=== PATIENT | female | born 1930 | race Caucasian/White ===

== ENCOUNTER 2016-10-18 14:46 | Inpatient (IN) ==
[2016-10-18] MEDS ORDERED: TORADOL IV ONE (17:28)
[2016-10-18] MEDS: NS 1,000 ML IV SCH (18:10)
--- NOTE | 2016-10-18 18:59 | Diag Imaging Result Doc PS360 ---
KUB ABDOMEN - 10/18/2016 INDICATION: constipation TECHNIQUE: COMPARISON: 10/14/2016 FINDINGS: There has been resolution of the constipation. No bowel obstruction or free air. No abnormal calcifications. IMPRESSION: Resolution of the constipation. Very little stool in the colon. Electronically signed by Yobany Emmanuel 10/18/2016 6:57 PM
[2016-10-18 19:10] LABS: MANUAL DIFF NEEDED? NO
[2016-10-18 19:23] LABS: EOS# 0.21 X1000 (0.0-0.7); EOS% 3.1 % (0.0-10.0); HEMATOCRIT 42.9 % (37.0-47.0); HEMOGLOBIN 14.2 g/dL (12.0-16.0); IMM GRAN# 0.02 X1000 (0.0-0.04); IMM GRAN% 0.3 % (0.0-0.5); LYMPH# 1.46 X1000 (1.2-3.4); LYMPH% 21.3 % (20.5-51.1); MCH 29.2 PG (27-31); MCHC 33.1 g/dL (33-37); MCV 88.1 FL (81-99); MONO# 0.62 X1000 (0.11-0.59); MONO% 9.1 % (1.7-9.3); MPV 10.5 FL (7.4-10.4); NEUT% 65.2 % (42.2-75.2); PLT 187 X1000 (130-400); RBC 4.87 XMIL (4.2-5.4)
[2016-10-18 19:44] LABS: AGAP 0; ALBUMIN 3.7 g/dL (3.5-5.0); ALKALINE PHOSPHATASE 68 U/L (32-104); AMYLASE 37 U/L (20-200); BUN 14 mg/dL (8-22); CALCIUM 9.1 mg/dL (8.8-10.2); CHLORIDE 96 mmol/L (98-107); COSMO 273; GOT 19 U/L (10-30); GPT 13 U/L (10-36); POTASSIUM 4.1 mmol/L (3.5-5.1); SODIUM 136 mmol/L (136-145); TCO2 40 mmol/L (25-35); TOTAL BILIRUBIN 0.51 mg/dL (0.20-1.00); TOTAL PROTEIN 7.6 g/dL (6.3-8.3)
[2016-10-18 20:40] LABS: URINE MICRO REVIEW NEEDED? NO; URINE SOURCE VOIDED
[2016-10-18 20:55] LABS: BILIRUBIN URINE NEGATIVE (NEGATIVE); BLOOD URINE NEGATIVE (NEGATIVE); COLOR STRAW; GLUCOSE URINE NEGATIVE (NEGATIVE); LEUKOCYTES URINE MODERATE (NEGATIVE); NITRITE URINE NEGATIVE (NEGATIVE); PROTEIN URINE NEGATIVE (NEGATIVE); SP GRAVITY URINE 1.006; TURBIDITY URINE CLEAR (CLEAR); UR EPITHELIAL CELLS <10 /HPF (<10); URINE BACTERIA 2+ /HPF; URINE RBC <10 /HPF (<10); UROBILINOGEN URINE NORMAL (NORMAL)
--- NOTE | 2016-10-18 21:32 | HISTORY AND PHYSICAL ---
CHIEF COMPLAINT: 1. Intractable back pain. 2. Right-sided abdominal pain, nausea. 3. Constipation. HISTORY OF PRESENT ILLNESS: She is an 86-year-old white female who was seen a 3rd time for these above symptoms. She was evaluated in the emergency room on 10/14/2016. At that time, CBC and SMA- [address] scan of the abdomen and pelvis revealed mildly distended gallbladder, no calcified gallstones. No pancreatic mass. Distended right colon with fecal debris. There is 1.2 cm diverticulum in the mid descending colon. No diverticulitis. Right hip prosthesis, previous hysterectomy and x-ray of the lumbar spine, no evidence of fracture or dislocation. She was sent home on laxatives. Then she was evaluated in my office on 10/15/2016. She was sent home on Linzess. She was brought in by son this afternoon and mother was not able to eat, not able to walk. X-ray of the right hip, stable prosthesis. Basically admitted to the hospital for the evaluation of the back pain and also abdominal pain on the right side. Possible rule out gallbladder disease. Pain is localized. No radiation to the leg. No fever. No UTI symptoms. PAST MEDICAL HISTORY: Hypertension. Osteoarthritis. Osteopenia. Retinopathy of the left eye. PAST SURGICAL HISTORY: Hysterectomy. Right hip replacement. Tubal ligation. MEDICATIONS: Fosamax. Aspirin. Calcium. Diovan 320 mg daily. Metamucil. ALLERGIES: Morphine, codeine and sulfa drugs. SOCIAL HISTORY: No smoking. No alcohol. . 2 children. Lives in [place]. FAMILY HISTORY: Father in 1984 due to heart problems. Mom of peptic ulcer disease. Rupture. HEALTH MAINTENANCE: Flu vaccine 2015, mammography 12/2015, colonoscopy [address] Rocha. DEXA scan 07/2013. REVIEW OF SYSTEMS: HEENT: No headache. No vision problem. No earache. No sore throat. Neck: No goiter. No lymphadenopathy. No bruit. Cardiopulmonary: No chest pain, shortness of breath, PND, orthopnea. GI: Upper abdominal pain, nausea with food and intractable back pain localized. No rashes noted. : No history of hesitancy, frequency, dysuria. No weakness in the legs. PHYSICAL EXAMINATION: VITAL SIGNS: Stable. 5 feet 6 inches, 138 pounds. Input and output -350. HEENT: Within normal limits. NECK: Supple. No lymphadenopathy. CHEST: Bilateral air entry. HEART: Sounds are regular. BREAST EXAM: Deferred. ABDOMEN: Belly is soft. No signs of peritonitis. No rashes noted on the back. No flank tenderness. NEUROLOGIC: No obvious focal deficits. INVESTIGATIONS: CBC is normal. White cell count 6.8, hematocrit 42, platelets 187,000. SMA7 is normal. LFTs were normal. Urinalysis is pending. KUB: Resolution of constipation. ASSESSMENT AND PLAN: 1. An 86-year-old white female admitted to the hospital with abdominal pain, rule out gallbladder disease. We will schedule a HIDA scan. 2. Intractable back pain. Spondylosis. We will do the MRI of lumbar spine. 3. Reconcile home medicines. 4. IV fluids. Tylenol for pain. Linzess for constipation. Zofran for nausea. 5. Gastrointestinal prophylaxis with Protonix. 6. Deep venous thrombosis prophylaxis with Lovenox and will follow up. cc: Braydon Mathews MD MTDD
[2016-10-18] MEDS: CALTRATE 600 + D PO SCH (21:42)
[2016-10-18] MEDS: SODIUM CHLORIDE 0.9% INJ SCH (21:45)
[2016-10-18] MEDS: PROTONIX IV SCH (21:45)
[2016-10-18] MEDS: TORADOL IV SCH (23:31)
[2016-10-19] MEDS: TORADOL IV SCH ×4 (04:55→22:23)
[2016-10-19] MEDS: NS 1,000 ML IV SCH ×2 (08:14→17:52)
--- NOTE | 2016-10-19 09:35 | Diag Imaging Result Doc PS360 ---
EXAM: MRI LUMBAR SPINE W/O CONTRAST HISTORY: back pain TECHNIQUE: MRI of the lumbar spine, T1 and T2 sagittal, STIR sagittal, T1 and T2 axial COMMENT: There are no previous MRI studies. There is rotoscoliosis of the lumbar spine with convexity to the right. There is what appears to be a hemangioma on the left side of the L3 vertebral body. At L1-2 there is some hypertrophic facet disease and disc bulge without evidence of spinal or foraminal stenosis. At L2-3 there is disc bulge and osteophyte formation with central disc protrusion. The left foramen is slightly narrowed. Hypertrophic facet changes and ligamentum flavum hypertrophy is present. At the L3-4 level there is severe hypertrophic facet disease on the right as well as disc bulge producing a mild degree of right-sided foraminal stenosis. There is narrowing of the lateral recess as well which may involve some degree of nerve root compression. At the L4-5 level there are II nerve root sheath cysts on the left. There is some disc bulge. The right foramen is slightly narrowed. There is ligamentum flavum hypertrophy and facet arthropathy particularly on the right. At the L5-S1 level there is a nerve root sheath cyst on the left. There is disc bulge particularly into the lateral recess and foramen on the right. No evidence of spinal stenosis is present. IMPRESSION: Multilevel degenerative disc and facet changes as described above. Electronically signed by Roger Dave 10/19/2016 9:33 AM
[2016-10-19] MEDS: LOVENOX SUBQ SCH (11:58)
--- NOTE | 2016-10-19 12:00 | Diag Imaging Result Doc PS360 ---
HIDA SCAN W/ EJECTION FRACTION - 10/18/2016 INDICATION: abdominal bloating COMPARISON: None FINDINGS: 5.5 millicuries of Choletec was administered. There is normal uptake and clearance by the liver. There is normal excretion into the gallbladder and small bowel. A fatty meal was given. The gallbladder ejection fraction is 28%. IMPRESSION: Subnormal gallbladder ejection fraction suggesting chronic cholecystitis or biliary dyskinesia. An abnormally low ejection fraction (less than 35%) can be present in patients without gallbladder dyskinesis or chronic cholelithiasis to have other medical conditions. These include but are not limited to, patients with diabetic mellitus, irritable bowel syndrome, , gastroenteritis. peptic ulcer disease, and patients receiving morphine or nifedipine. Electronically signed by Yobany Emmanuel 10/19/2016 11:58 AM
[2016-10-19] MEDS: LINACLOTIDE 72 MCG PO SCH (13:25)
[2016-10-19] MEDS: DIOVAN PO SCH (13:25)
[2016-10-19] MEDS: CALTRATE 600 + D PO SCH ×2 (13:25→22:23)
[2016-10-19] MEDS: THERA M PLUS PO SCH (13:26)
[2016-10-19] MEDS: ASPIRIN EC PO SCH (13:26)
--- NOTE | 2016-10-19 18:51 | PROGRESS NOTE ---
DATE: 10/19/2016 SUBJECTIVE: The patient was seen going for MRI and pain is much better after Toradol shot. Seen in the wheelchair bound. Complains of intermittent nausea but not severe. REVIEW OF SYSTEMS: None reported. PHYSICAL EXAMINATION: Vital Signs: Afebrile. Vitals are stable. HEENT: Within normal limits. Neck: Supple. No lymphadenopathy. Chest: Clear to auscultation. Heart: Sounds are regular. Abdomen: Belly is soft, nontender. Good bowel sounds. Neurologic: No obvious neurological deficits. INVESTIGATIONS: CBC, SMA 12 is normal. Urinalysis positive for ketones. ASSESSMENT AND PLAN: 1. Intractable back pain due to spondylosis. Follow up on MRI. Continue on Toradol. 2. Abdominal pain on the right side. Ultrasound is negative. CT was negative and schedule for a HIDA scan. 3. Impending dehydration with ketones with the nausea. Continue IV fluids. 4. Deconditioning with the pain. Continue on physical therapy. 5. Will follow up on the MRI and HIDA scan. Based on that, further recommendations will be followed. LEVEL OF DOCUMENTATION: 35 minutes. cc: Braydon Mathews MD
[2016-10-19] MEDS: PROTONIX IV SCH (22:23)
[2016-10-19] MEDS: SODIUM CHLORIDE 0.9% INJ SCH (22:23)
[2016-10-20] MEDS: TORADOL IV SCH ×5 (00:31→22:44)
[2016-10-20] MEDS: NS 1,000 ML IV SCH ×3 (00:32→14:24)
[2016-10-20] MEDS: CALTRATE 600 + D PO SCH ×2 (10:54→20:38)
[2016-10-20] MEDS: DIOVAN PO SCH (10:54)
[2016-10-20] MEDS: LOVENOX SUBQ SCH (10:54)
[2016-10-20] MEDS: THERA M PLUS PO SCH (10:54)
[2016-10-20] MEDS: LINACLOTIDE 72 MCG PO SCH (10:55)
[2016-10-20] MEDS: ASPIRIN EC PO SCH (10:55)
--- NOTE | 2016-10-20 18:15 | PROGRESS NOTE ---
DATE: 10/20/2016 SUBJECTIVE: Patient had MRI of lumbar spine done as well as HIDA scan. Complains of nausea while eating and diffuse abdominal pain. Back pain is slowly improving. REVIEW OF SYSTEMS: Otherwise none reported. OBJECTIVE: Vital Signs: She is afebrile. Blood pressure is 170/80. Input and output positive to 1500 mL. HEENT: Within normal limits. Neck: Supple. No lymphadenopathy. Chest: Clear to auscultation. Heart: Sounds are regular. Abdomen: Belly is soft, nontender. Good bowel sounds. No masses palpable. No peripheral edema, cyanosis. No obvious neurological deficits. INVESTIGATIONS: CBC, SMA 7 was normal. Urine cultures showed gram-positive cocci. Lumbar spine MRI, multilevel DJD changes. HIDA scan positive. EF is less than 35%. ASSESSMENT AND PLAN: 1. Lower back pain due to lumbar spinal stenosis. Toradol as needed. 2. Abdominal pain, nausea while eating suspicious for gallbladder disease. Positive HIDA scan. Consult with Dr. Sadler. 3. Deep venous thrombosis prophylaxis with Lovenox. 4. History of constipation is better. 5. Urinary tract infection, gram-positive cocci and based on the culture and sensitivity we will initiate antibiotics. ALLERGIES: The patient has allergy to codeine. Discussed with the son. The plan of care is 25 minutes. cc: Braydon Mathews MD
[2016-10-20] MEDS: KEFZOL 1 GM/D5W 1 GM/50 ML IVPB IV SCH (20:38)
[2016-10-20] MEDS: PROTONIX IV SCH (20:38)
[2016-10-20] MEDS: ZOFRAN IV PRN (21:15)
[2016-10-21] MEDS ORDERED: TORADOL IV ONE (02:00)
[2016-10-21] MEDS: KEFZOL 1 GM/D5W 1 GM/50 ML IVPB IV SCH ×3 (03:57→21:06)
[2016-10-21] MEDS: ZOFRAN IV PRN ×2 (03:59→16:00)
[2016-10-21] MEDS: NS 1,000 ML IV SCH (05:11)
[2016-10-21] MEDS: TORADOL IV SCH ×3 (05:11→17:39)
[2016-10-21] MEDS ORDERED: SODIUM CHLORIDE 0.9% ONE (07:17)
[2016-10-21] MEDS ORDERED: XYLOCAINE 1%/EPI 1:100,000 ONE (07:17)
[2016-10-21] MEDS ORDERED: SENSORCAINE 0.5%-EPI 1:200,000 ONE (07:17)
[2016-10-21] MEDS ORDERED: LR 1,000 ML ONE (07:18)
[2016-10-21] MEDS ORDERED: DIPRIVAN 1% ONE (07:45)
[2016-10-21] MEDS ORDERED: FENTANYL ONE (07:46)
[2016-10-21] MEDS ORDERED: XYLOCAINE-MPF 2% ONE (07:47)
[2016-10-21] MEDS ORDERED: QUELICIN (DOSE) ONE (07:49)
[2016-10-21] MEDS ORDERED: EPHEDRINE ONE (08:28)
[2016-10-21] MEDS ORDERED: ZOFRAN ONE (08:41)
[2016-10-21] MEDS ORDERED: DECADRON ONE (08:41)
--- NOTE | 2016-10-21 09:10 | Diag Imaging Result Doc PS360 ---
EXAM: OPERATIVE CHOLANGIOGRAM HISTORY: GB DISEASE TECHNIQUE: Intraoperative cholangiogram one image COMMENT: There is no evidence of filling defect or obstruction in the common hepatic or common bile ducts. There is contrast entering the duodenum. IMPRESSION: No evidence of retained gallstones. Electronically signed by Roger Dave 10/21/2016 9:08 AM
[2016-10-21] MEDS ORDERED: NEOSTIGMINE ONE (09:42)
[2016-10-21] MEDS ORDERED: ROBINUL ONE (09:42)
[2016-10-21] MEDS ORDERED: D5 1/2 NS + KCL 20 MEQ 1,000 ML ONE (10:00)
[2016-10-21] MEDS: THERA M PLUS PO SCH (10:32)
[2016-10-21] MEDS: CALTRATE 600 + D PO SCH ×2 (10:32→21:06)
[2016-10-21] MEDS: LINACLOTIDE 72 MCG PO SCH (10:33)
[2016-10-21] MEDS: DIOVAN PO SCH (10:33)
[2016-10-21] MEDS ORDERED: TYLENOL PO PRN (10:58)
[2016-10-21] MEDS ORDERED: ZOFRAN PO PRN (10:58)
[2016-10-21] MEDS ORDERED: D5 1/2 NS + KCL 20 MEQ 1,000 ML IV SCH (11:00)
[2016-10-21 11:17] LABS: URINE MICRO REVIEW NEEDED? NO; URINE SOURCE CATH
[2016-10-21 11:26] LABS: UR EPITHELIAL CELLS <10 /HPF (<10); URINE BACTERIA NEGATIVE /HPF; URINE RBC <10 /HPF (<10); URINE WBC <10 /HPF (<10)
[2016-10-21 11:27] LABS: BILIRUBIN URINE NEGATIVE (NEGATIVE); BLOOD URINE NEGATIVE (NEGATIVE); COLOR YELLOW; GLUCOSE URINE TRACE mg/dL (NEGATIVE); LEUKOCYTES URINE NEGATIVE (NEGATIVE); NITRITE URINE NEGATIVE (NEGATIVE); PROTEIN URINE 100 mg/dL (NEGATIVE); SP GRAVITY URINE 1.015; TURBIDITY URINE CLEAR (CLEAR); UROBILINOGEN URINE NORMAL (NORMAL)
--- NOTE | 2016-10-21 13:37 | PROGRESS NOTE ---
DATE: 10/21/2016 SUBJECT: Interval history was reviewed. Patient complains of abdominal pain. Was seen by Dr. Sadler who did the laparoscopic cholecystectomy. She looks better. Family was there at bedside. Last night call me some intractable back pain. Gave a Toradol shot. REVIEW OF SYSTEMS: None reported. PHYSICAL EXAMINATION: Vital Signs: She is afebrile. Vitals are stable. HEENT: Within normal limits. Neck: Supple. No lymphadenopathy. Chest: Clear. Heart: Sounds are regular. Belly: Is soft, nontender, good bowel sounds. Neurologic: No neurological deficits. INVESTIGATIONS: Urine cultures positive group D enterococci. ASSESSMENT AND PLAN: 1. Acalculous cholecystitis, laparoscopic cholecystectomy better on intravenous fluids. 2. Chronic back pain due to spondylosis and Toradol as needed and Demerol. 3. Urinary tract infection, was started on IV Levaquin and discussed with the family plan of care. Apparently wants to go for rehab and continue present postop care. Will discuss with the social sciences chair in the morning. LEVEL OF DOCUMENTATION: Is 35 minutes. cc: Braydon Mathews MD
[2016-10-21] MEDS: NORCO-5 PO PRN (14:09)
[2016-10-21] MEDS: LEVAQUIN 500 MG/D5W 500 MG/100 ML IVPB IV SCH (14:10)
--- NOTE | 2016-10-21 14:27 | OPERATIVE NOTE ---
PROCEDURE DATE: 10/21/2016 PREOP DIAGNOSIS: Chronic cholecystitis. POSTOP DIAGNOSIS: Chronic cholecystitis. PROCEDURE: Laparoscopic cholecystectomy with operative cholangiogram. DESCRIPTION OF PROCEDURE: The patient is brought to the operating room. After satisfactory induction of IV and endotracheal anesthesia, athrombic TEDs and Craven catheter were placed. Her abdomen was broadly prepped and draped in the appropriate manner for laparoscopy. Initially, the infraumbilical area was infiltrated with 0.25% Marcaine with epinephrine. Dissection taken sharply down through skin and subcutaneous tissue. Fascia was tacked with 0 Surgilon and incised. Under direct visualization, a Gogo trocar was placed. The abdomen was insufflated to 3.5 L of carbon dioxide. The camera was introduced revealing a large distended gallbladder with omental and duodenal adhesions. In the right epigastrium a 10 and two 5 mm trocars were placed again after infiltration with Marcaine. The patient was repositioned. The gallbladder was grasped and retracted superiorly. The omental and duodenal adhesions were peeled down with no evidence of duodenal injury. The hilar structures were dissected. The cystic duct cholangiogram revealed good flow of contrast into the duodenum with no obstruction. The catheter was removed. The duct was doubly clipped and divided as was the cystic artery. The gallbladder was dissected from the liver bed with the monopolar scissors. On completion, the gallbladder was intact. It was placed in an EndoCatch bag and removed. Reinspection of the liver bed revealed small bleeding points that were controlled by electrocautery. The subhepatic and subphrenic spaces were aspirated free of the small amount of bile and blood. There was a small amount of blood in the pelvis. It was likewise aspirated. The abdomen was subsequently deflated and the trocars were removed. The subumbilical incision underwent fascial closures of 0 Surgilon. All skin incisions were closed with subcuticular 4-0 Vicryl. Steri-Strips, Telfa, and OpSite were applied. The patient was awakened and extubated in the operating room and transferred to recovery. Craven catheter was left indwelling. ESTIMATED BLOOD LOSS: Around 20 mL. cc: MD Braydon Chau MD
[2016-10-21] MEDS: PERIDEX MT SCH (21:06)
[2016-10-21] MEDS: SODIUM CHLORIDE 0.9% INJ SCH (21:07)
[2016-10-21] MEDS: PROTONIX IV SCH (21:07)
[2016-10-22] MEDS: TORADOL IV SCH ×5 (00:15→23:56)
[2016-10-22] MEDS: KEFZOL 1 GM/D5W 1 GM/50 ML IVPB IV SCH (05:26)
--- NOTE | 2016-10-22 06:04 | EKG Report ---
Test Performed on : 10/21/2016 08:12:45 AM Test Reason : SURGERY Blood Pressure : / mmHG Vent. Rate : 088 BPM Atrial Rate : 088 BPM P-R Int : 192 ms QRS Dur : 088 ms QT Int : 354 ms P-R-T Axes : 045 -03 111 degrees QTc Int : 428 ms Sinus rhythm. with premature atrial complexes. Nonspecific T wave abnormality Abnormal ECG When compared with ECG of 25-APR-2009 10:20, premature atrial complexes. are now present Nonspecific ST abnormality high-lateral leads 1 and AVL RSR' or QR pattern in V1 suggests right ventricular conduction delay -new T wave inversion no longer evident in V5 Confirmed by Marc Rosario DO ([id number]) on 10/25/2016 6:57:11 AM
[2016-10-22 07:15] LABS: MANUAL DIFF NEEDED? NO
[2016-10-22 07:27] LABS: BASO% 0.1 % (0.0-0.8); EOS# 0.13 X1000 (0.0-0.7); EOS% 1.5 % (0.0-10.0); HEMATOCRIT 38.2 % (37.0-47.0); HEMOGLOBIN 12.9 g/dL (12.0-16.0); LYMPH# 1.27 X1000 (1.2-3.4); LYMPH% 14.4 % (20.5-51.1); MCH 28.9 PG (27-31); MCHC 33.8 g/dL (33-37); MCV 85.5 FL (81-99); MONO# 0.99 X1000 (0.11-0.59); MONO% 11.2 % (1.7-9.3); MPV 10.7 FL (7.4-10.4); NEUT% 72.8 % (42.2-75.2); PLT 198 X1000 (130-400); RBC 4.47 XMIL (4.2-5.4)
--- NOTE | 2016-10-22 07:27 | EKG Report ---
Test Performed on : 10/22/2016 06:44:19 AM Test Reason : ABD PAIN Blood Pressure : / mmHG Vent. Rate : 076 BPM Atrial Rate : 076 BPM P-R Int : 172 ms QRS Dur : 090 ms QT Int : 396 ms P-R-T Axes : 052 -03 120 degrees QTc Int : 445 ms Normal sinus rhythm. with sinus arrhythmia. ST \T\ T wave abnormality, consider lateral ischemia Abnormal ECG When compared with ECG of 21-OCT-2016 08:12, (Unconfirmed) premature atrial complexes. are no longer present ST more depressed in high-lateral leads I and AVL RSR' or QR pattern in V1 suggests right ventricular conduction delay Nonspecific ST abnormality far lateral leads V5-V6 Clinical Correlation advised Confirmed by Marc Rosraio DO ([id number]) on 10/25/2016 7:06:04 AM
[2016-10-22 07:43] LABS: AGAP 10; ALBUMIN 3.8 g/dL (3.5-5.0); ALKALINE PHOSPHATASE 60 U/L (32-104); BUN 11 mg/dL (8-22); CALCIUM 9.4 mg/dL (8.8-10.2); CHLORIDE 95 mmol/L (98-107); COSMO 268; GOT 34 U/L (10-30); GPT 21 U/L (10-36); POTASSIUM 4.5 mmol/L (3.5-5.1); SODIUM 134 mmol/L (136-145); TCO2 29 mmol/L (25-35); TOTAL PROTEIN 6.8 g/dL (6.3-8.3)
--- NOTE | 2016-10-22 08:59 | PROGRESS NOTE ---
DATE: 10/22/2016 SUBJECTIVE: Postop day 1 laparoscopic cholecystectomy. Tolerating the clear liquids very well. No nausea. No abdominal pain. Intermittent back pain. REVIEW OF SYSTEMS: None reported. OBJECTIVE: Vital signs: Afebrile. Vitals are stable. I's and O's are positive 1800. HEENT: Within normal limits. Neck: Supple. Chest: Clear to auscultation. Heart: Sounds are regular. Abdomen: Belly is soft, nontender. Good bowel sounds. Neurologic: No neurological deficits. INVESTIGATIONS: CBC: White cell count 8.8, hematocrit 38, platelets 198,000. SMA 7: LFTs were normal. ASSESSMENT AND PLAN: 1. Postoperative day 1 laparoscopic cholecystectomy. Advance the diet, low fat as tolerated and decrease the IV fluids. 2. Urinary tract infection. On IV Levaquin. 3. Chronic back pain. On Toradol. 4. Disposition. support services tech consult for rehab placement as per the family. LEVEL OF DOCUMENTATION: 25 minutes. cc: Braydon Mathews MD
[2016-10-22] MEDS ORDERED: ASPIRIN PO ONE (10:11)
[2016-10-22] MEDS: DIOVAN PO SCH (10:23)
[2016-10-22] MEDS: CALTRATE 600 + D PO SCH ×3 (10:26→23:57)
[2016-10-22] MEDS: LEVAQUIN 500 MG/D5W 500 MG/100 ML IVPB IV SCH (10:27)
[2016-10-22] MEDS: PERIDEX MT SCH ×3 (10:27→23:56)
[2016-10-22] MEDS: LINACLOTIDE 72 MCG PO SCH (10:28)
[2016-10-22] MEDS: THERA M PLUS PO SCH (10:29)
[2016-10-22] MEDS: ASPIRIN EC PO SCH (10:29)
[2016-10-22] MEDS: LOVENOX SUBQ SCH (10:30)
[2016-10-22] MEDS: DEMEROL IV PRN ×2 (14:39→19:54)
[2016-10-22] MEDS: ZOFRAN IV PRN ×2 (14:41→19:54)
[2016-10-22] MEDS: PROTONIX IV SCH (19:54)
[2016-10-22] MEDS: SODIUM CHLORIDE 0.9% INJ SCH (19:54)
[2016-10-23] MEDS: TORADOL IV SCH ×4 (05:45→23:25)
--- NOTE | 2016-10-23 08:38 | PROGRESS NOTE ---
DATE: 10/23/2016 SUBJECTIVE: The patient is slowly tolerating the diet. Poor appetite. Intermittent back pain. REVIEW OF SYSTEMS: Otherwise none reported. OBJECTIVE: Vital Signs: Stable. Blood pressure is 179/93. I's and O's are even. HEENT: Within normal limits. Neck: Supple. Chest: Clear to auscultation. Heart: Heart sounds are regular. Abdomen: Belly is soft, nontender. Good bowel sounds. No masses palpable. Neurologic: No obvious neurological deficits. INVESTIGATIONS: Urine culture showed Enterococci. ASSESSMENT AND PLAN: 1. Status post laparoscopic cholecystectomy, postop day 2, slowly tolerating the diet very well. 2. Urinary tract infection, on Levaquin. 3. Back pain is stable. 4. Out of the bed with Physical Therapy. 5. Hypertension. Continue to monitor on Diovan. Discussed with the patient and family. Waiting for rehab placement; hopefully by tomorrow. LEVEL OF DOCUMENTATION: 25 minutes. cc: Braydon Mathews MD
[2016-10-23] MEDS: LINACLOTIDE 72 MCG PO SCH (09:33)
[2016-10-23] MEDS: CALTRATE 600 + D PO SCH ×2 (09:34→21:18)
[2016-10-23] MEDS: LOVENOX SUBQ SCH (09:34)
[2016-10-23] MEDS: ASPIRIN EC PO SCH (09:34)
[2016-10-23] MEDS: DIOVAN PO SCH (09:34)
[2016-10-23] MEDS: THERA M PLUS PO SCH (09:34)
[2016-10-23] MEDS: PERIDEX MT SCH ×2 (09:34→21:18)
[2016-10-23] MEDS: LEVAQUIN 500 MG/D5W 500 MG/100 ML IVPB IV SCH (09:35)
[2016-10-23] MEDS: ZOFRAN IV PRN (09:52)
[2016-10-23] MEDS: NORCO-5 PO PRN (09:53)
[2016-10-23] MEDS: SODIUM CHLORIDE 0.9% INJ SCH (21:18)
[2016-10-23] MEDS: PROTONIX IV SCH (21:18)
[2016-10-24] MEDS: NORCO-5 PO PRN (06:07)
--- NOTE | 2016-10-24 08:27 | DISCHARGE SUMMARY ---
ADMISSION DATE: 10/18/2016 DISCHARGE DATE: 10/24/2016 DISCHARGING DIAGNOSIS: Abdominal pain due to acalculous cholecystitis. SECONDARY DIAGNOSES: 1. Hypertension. 2. Lumbar spine spondylosis. 3. Osteopenia 4. Status post right hip replacement. 5. Urinary tract infection with Enterococci faecalis. CONSULTS: Nilesh Sadler MD PROCEDURES: Laparoscopic cholecystectomy. BRIEF HISTORY: Please see the H and P that was done on 10/18/2016. In brief, she is an 86-year- old white female with above problems, was admitted to the hospital with nausea, abdominal pain on the right side associated with back pain not able to ambulate. HOSPITAL COURSE: She was given IV fluids and Toradol for pain control. Ultrasound did not show any gallstones. HIDA scan positive with ejection fraction less than 30%. The patient was consulted by Dr. Nilesh Sadler. He did a lap cholecystectomy. Postoperative course was uneventful. She has been tolerating the diet very well. She also had a significant back pain due to underlying scoliosis and spondylosis. MRI of the lumbar spine was done. She is extremely feeble to go home on her own; as a result, at the request of the family, she has been sent to the rehab for convalescence. LABS: CBC: White cell count 8.8, hematocrit 38, platelet 198,000. SMA 7 is normal. Liver function tests were normal. Urinalysis is clear. Urine cultures shows UTI with enterococci. Sensitive to Levaquin. The patient was also given IV antibiotics with Levaquin for the UTI. It will be continued next 5 days as an outpatient. DISCHARGING INSTRUCTIONS: As follows: 1. Aspirin 81 mg daily, calcium with vitamin D 1 tablet p.o. b.i.d., multivitamin 1 tablet daily, valsartan 320 daily, Linzess 72 mcg daily, Colace 100 daily, Zofran as needed for nausea, Ultracet 1 tab q.6 hours p.r.n. pain, Levaquin 500 daily for 5 days, Probiotics 1 tablet daily. 2. Follow up in my office in 10 days as well as Dr. Nilesh Sadler. cc: Braydon Mathews MD
[2016-10-24] MEDS: CALTRATE 600 + D PO SCH (09:43)
[2016-10-24] MEDS: LOVENOX SUBQ SCH (09:43)
[2016-10-24] MEDS: LINACLOTIDE 72 MCG PO SCH (09:43)
[2016-10-24] MEDS: DIOVAN PO SCH (09:43)
[2016-10-24] MEDS: ASPIRIN EC PO SCH (09:43)
[2016-10-24] MEDS: PERIDEX MT SCH (09:43)
[2016-10-24] MEDS: LEVAQUIN 500 MG/D5W 500 MG/100 ML IVPB IV SCH (09:44)
[2016-10-24] MEDS: THERA M PLUS PO SCH (09:54)
[2016-10-24 12:26] VITALS: BP 160/84
== END 2016-10-24 14:28 ==
LOC: DIRADM 14:46 → 4N 15:07
PROVIDERS: ADMIT Internal Medicine; ATTEND Internal Medicine

== ENCOUNTER 2018-03-05 16:33 | Inpatient (IN) ==
[2018-03-05 17:57] LABS: MCH 29.1 PG (27-31); MCHC 31.6 g/dL (33-37); MCV 92.2 FL (81-99); MPV 10.1 FL (7.4-10.4); RBC 4.12 XMIL (4.2-5.4); RDW 13.9 % (11.5-14.5); WBC 5.74 X1000 (4.8-10.8)
[2018-03-05] MEDS: LASIX IV SCH (17:57)
[2018-03-05 18:04] LABS: INR 0.94; PROTIME 13.4 Seconds (11.0-16.0)
[2018-03-05 18:13] LABS: ALLEN TEST YES; BE 4.1 mmoll (-3.0-3.0); BLOOD TYPE ARTERIAL; HCO3-(ACT) 27.9 mmoll (20.0-26.0); METHB 1.2 % (0.0-1.5); O2(CT) 15.2 mL/dL (15.0-23.0); PCO2(98.6) 41 mmHg (35-45); PO2(98.6) 52 mmHg (60-100); SAMPLE BLOOD; SAO2 91.1 % (95.0-100.0); THB 12.3 g/dL (11.5-17.4); pH(98.6) 7.45 (7.35-7.45)
[2018-03-05 18:14] LABS: MODALITY ROOM AIR; O2HB 87.8 % (95.0-99.0)
[2018-03-05 18:19] LABS: ALB/GLOB RATIO 1.2; ALBUMIN 3.7 g/dL (3.5-5.0); CALCIUM 9.8 mg/dL (8.8-10.2); CREATININE 0.9 mg/dL (0.5-0.9); TOTAL BILIRUBIN 0.47 mg/dL (0.20-1.00); TOTAL PROTEIN 6.8 g/dL (6.3-8.3)
[2018-03-05 18:39] LABS: URINE SOURCE CLEAN CATCH
[2018-03-05 19:26] LABS: BILIRUBIN URINE NEGATIVE (NEGATIVE); BLOOD URINE NEGATIVE (NEGATIVE); COLOR STRAW; GLUCOSE URINE NEGATIVE (NEGATIVE); KETONE URINE NEGATIVE (NEGATIVE); LEUKOCYTES URINE NEGATIVE (NEGATIVE); NITRITE URINE NEGATIVE (NEGATIVE); PROTEIN URINE NEGATIVE (NEGATIVE); TURBIDITY URINE CLEAR (CLEAR); UROBILINOGEN URINE NORMAL (NORMAL)
[2018-03-05 19:29] LABS: UR EPITHELIAL CELLS <10 /HPF (<10); URINE BACTERIA NEGATIVE /HPF; URINE RBC <10 /HPF (<10); URINE WBC <10 /HPF (<10)
[2018-03-05] MEDS ORDERED: LANOXIN IV ONE (20:24)
[2018-03-05] MEDS: CALTRATE 600 + D PO SCH (21:16)
[2018-03-05] MEDS: LOPRESSOR IV SCH (21:17)
[2018-03-05] MEDS: COZAAR PO SCH (21:52)
[2018-03-06] MEDS: LOPRESSOR IV SCH ×2 (02:34→09:14)
--- NOTE | 2018-03-06 05:00 | HISTORY AND PHYSICAL ---
CHIEF COMPLAINT: Shortness of breath for the last few days, swelling of feet. HISTORY OF PRESENT ILLNESS: She is an 87-year-old white female who came to my office with her son with the above problems. On examination, she has elevated JVD, irregular heart, tachycardic with a gallop. She has decreased breath sounds in both bases and 3+ pedal edema in both feet. Chest x- ray showed basically bilateral pleural effusion. laboratory monitor she is in atrial fibrillation. Admitted in [facility] for acute decompensated congestive heart failure with her unknown duration of atrial fibrillation. As a result a hospital admission was warranted. PAST MEDICAL HISTORY: Hypertension, osteoarthritis, osteopenia, retinopathy on the left side. New onset of congestive heart failure and atrial fibrillation. PAST SURGICAL HISTORY: Cholecystectomy, hysterectomy, tubal ligation, right hip replacement, multiple thoracic lower kyphoplasties by Dr. Luis. MEDICATIONS: Calcitonin nasal spray, aspirin 81 mg daily, calcitriol 0.25 mcg daily, losartan 100 daily, Robaxin as needed, Ultracet 1 tablet b.i.d. for pain. ALLERGIES: Morphine and sulfa drugs. SOCIAL HISTORY: since April 2013. Two children. Retired. No smoking. No alcohol. No drug abuse. FAMILY HISTORY: Father of heart problems in 1984. Mom of peptic ulcer disease. HEALTH MAINTENANCE: Reported flu vaccine in 2018. Mammography in January of 2018. DEXA scan in January of 2017. Colonoscopy [place] [address] Rocha. REVIEW OF SYSTEMS: HEENT: No headache. No vision problem. No earache. No sore throat. Neck: No goiter. No lymphadenopathy. No neck pain. Cardiopulmonary: No chest pain, tachycardia, shortness of breath, PND, orthopnea, swelling of feet. Gastrointestinal: No nausea, vomiting, abdominal pain. Gallbladder was removed. Genitourinary: No history of hesitancy, frequency, dysuria, swelling of feet. No joint pains. Back: A lot of back problems with osteoporotic compression fractures. Neurologic: No focal symptoms, weakness or seizures. PHYSICAL EXAMINATION: VITAL SIGNS: Temperature is 97 degrees, pulse is 135 in my office, tachycardic, hypertensive, mild respiratory distress. HEENT: Atraumatic, normocephalic. Pupils are equal, and react to light. TMs are normal. NECK: JVD is elevated. CHEST: Decreased breath sounds in both bases. HEART: Sounds are regular. No murmur. ABDOMEN: Belly is soft, nontender. Good bowel sounds. EXTREMITIES: With 3+ pedal edema in both legs. NEUROLOGIC: No obvious neurological deficits. LABORATORY INVESTIGATIONS: CBC: White cell count 5.7, hematocrit 38, platelets 208,000. PT/INR is normal. ABG: pH is 7.45, pCO2 of 41, PO2 on room air. SMA 7 is normal and liver function tests are slightly elevated. Cardiac enzymes were negative. ProBNP 4000. TSH is normal. Urinalysis is clear. Chest x-ray, bilateral pleural effusions along with multiple kyphoplasty changes of thoracic spine noted. ASSESSMENT AND PLAN: 1. An 87-year-old white female admitted to the hospital with a new onset of congestive heart failure with atrial fibrillation and bilateral pleural effusion. Plan is daily weights, low- salt diet, I's and O's strictly. 2. Intravenous Lasix. 3. Check the echocardiography new onset of atrial fibrillation. Thyroid function tests were normal. Follow up on cardiac enzymes. 4. Hypertension on losartan 50 p.o. b.i.d. for atrial fibrillation. Rate control with metoprolol and Lanoxin. 5. Evaluation for the risk of stroke analysis. Consult with the production superintendent hydro financial sales professional, Dr. Arrieta. 6. Osteoporotic compression fracture on calcium with vitamin D, along with calcitonin nasal spray. 7. Chronic constipation on Linzess. 8. We will check the echocardiography for LV function and needs to rule out structural heart disease and we will follow up. cc: Braydon Mathews MD
[2018-03-06] MEDS: LASIX IV SCH ×3 (05:38→16:55)
--- NOTE | 2018-03-06 07:19 | ECHO REPORT ---
ORDER DATE: 03/05/2018 INDICATIONS: An 87-year-old female patient of Dr. Mathews, with atrial fibrillation, hypertension. M-MODE MEASUREMENTS: Left ventricle end diastole: 3.2 cm. Left ventricle end systole: 2.1 cm. Posterior wall: 1.4 cm. Interventricular septum: 1.5 cm. Left atrium: 3.5 cm. Aortic root: 3.0 cm. SUMMARY OF 2-DIMENSIONAL IMAGIN. The study is difficult. The patient is tachycardic with atrial fibrillation and rapid response. 2. There is moderate concentric LVH. 3. There is no wall motion abnormality. 4. The left ventricular systolic function is somewhere in the range of 65%-70%. 5. Aortic valve shows sclerosis of the cusps without stenosis. 6. The left atrium is dilated. 7. There is calcification of the mitral annulus. 8. Tricuspid valve shows moderate degree of regurgitation. 9. Pulmonic valve is unremarkable. 10.The mitral valve shows mild degree of regurgitation. 11.There is a very small pericardial effusion. 12.There are bilateral pleural effusions. SUMMARY: In summary, the study was technically difficult. 1. The patient is in atrial fibrillation with rapid response. There is moderate concentric left ventricular hypertrophy. 2. Preserved left ventricular systolic function.Ejection fraction 65%-70%. 3. Moderately dilated left atrium. 4. Small pericardial effusion without evidence of tamponade. 5. Bilateral pleural effusions which appear to be moderate in size. 6. Sclerosis of the aortic valve without stenosis. 7. Pulmonary systolic pressure estimated at 48-54 mmHg. Clinical correlation recommended. cc: MD Braydon Ramos MD
--- NOTE | 2018-03-06 08:38 | Diag Imaging Result Doc PS360 ---
EXAM: CHEST-2 VIEWS INDICATION: hypoxia TECHNIQUE: 2 views COMPARISON: None. FINDINGS: There are bilateral small pleural effusions. There is adjacent mild atelectasis at the lung bases. There is a calcified granuloma at the right lower lung zone. The lungs appear somewhat hyperinflated suggesting possible COPD. Cardiac silhouette is at least mildly prominent. Central vasculature is unremarkable. IMPRESSION: Suggestion of COPD and bilateral small pleural effusions as described. Electronically signed by Neymar Diamond 03/06/2018 8:35 AM
[2018-03-06] MEDS ORDERED: LINACLOTIDE 72 MCG PO SCH (09:00)
[2018-03-06] MEDS ORDERED: LOVENOX SUBQ SCH (09:00)
[2018-03-06] MEDS ORDERED: VALSARTAN 320 MG PO SCH (09:00)
[2018-03-06] MEDS: LANOXIN IV SCH (09:13)
[2018-03-06] MEDS: COZAAR PO SCH ×2 (09:14→20:31)
[2018-03-06] MEDS: CALTRATE 600 + D PO SCH ×2 (09:14→20:31)
[2018-03-06] MEDS: ASPIRIN EC PO SCH (09:14)
[2018-03-06] MEDS: COLACE PO SCH (09:14)
--- NOTE | 2018-03-06 10:18 | EKG Report ---
Test Performed on : 03/05/2018 10:47:58 PM Test Reason : chest pain Blood Pressure : / mmHG Vent. Rate : 081 BPM Atrial Rate : 051 BPM P-R Int : 000 ms QRS Dur : 086 ms QT Int : 372 ms P-R-T Axes : 000 032 131 degrees QTc Int : [address] & T wave abnormality, consider lateral ischemia Abnormal ECG When compared with ECG of 05-MAR-2018 22:47, (Unconfirmed) No significant change was found Confirmed by Tino LOPEZ, Hunter Goodwin ([id number]) on 03/07/2018 8:50:39 AM
--- NOTE | 2018-03-06 17:10 | EKG Report ---
Test Performed on : 03/06/2018 4:40:37 PM Test Reason : afib Blood Pressure : / mmHG Vent. Rate : 083 BPM Atrial Rate : 080 BPM P-R Int : 000 ms QRS Dur : 082 ms QT Int : 344 ms P-R-T Axes : 000 004 151 degrees QTc Int : [address] & T wave abnormality, consider lateral ischemia Abnormal ECG When compared with ECG of 05-MAR-2018 22:47, (Unconfirmed) No significant change was found Confirmed by Tino LOPEZ, Hunter Goodwin ([id number]) on 03/07/2018 8:53:41 AM
[2018-03-06] MEDS: ELIQUIS PO SCH (20:31)
[2018-03-06] MEDS: BETAPACE PO SCH (20:31)
[2018-03-06] MEDS ORDERED: LOPRESSOR PO SCH (21:00)
--- NOTE | 2018-03-06 23:34 | PROGRESS NOTE ---
DATE: 03/06/2018 SUBJECTIVE: The patient is doing a little better. Going for chest x-ray. Still in atrial fibrillation. REVIEW OF SYSTEMS: No chest pain. Improving breathing problems. OBJECTIVE: Vital Signs: Temperature is 98. Pulse is 75. Blood pressure is stable. 2 L nasal cannula. I's and O's negative, so far 2 L. HEENT: Within normal limits. Neck: JVD is decreased. Lungs: Decreased breath sounds on both bases. Heart: Irregular heart sounds. Extremities: 1+ pedal edema. Neurologic: No obvious neurological deficits. ASSESSMENT AND PLAN: 1. Acute decompensated diastolic heart failure, with atrial fibrillation. Consult with Dr. Gimler Barbour. 2. Atrial fibrillation, currently on sotalol and digoxin. Eliquis was started. 3. Continue IV Lasix. Follow up on chest x-ray and electrolytes. LEVEL OF DOCUMENTATION: 25 minutes. cc: Braydon Mathews MD
--- NOTE | 2018-03-07 04:21 | CONSULTATION ---
DATE OF CONSULTATION: 03/06/2018 IMPRESSION: 1. Atrial fibrillation of recent onset and probably persistent for several weeks based on history. 2. Acute congestive heart failure predominantly right-sided with peripheral edema and pleural effusions. 3. Hypertension. 4. Multiple vertebral compression fractures with resultant kyphosis and probable restrictive lung physiology. RECOMMENDATIONS: 1. Continue diuresis with intravenous Lasix. 2. CHADS-VASc score significant given age, hypertension, congestive heart failure and female gender. Favor anticoagulation for thromboembolic risk reduction. This was discussed with the patient. Eliquis has been initiated. 3. Although at present she has no palpitations and no direct symptoms related to her atrial fibrillation, it would appear that her atrial fibrillation is likely aggravating a tendency for congestive heart failure. For this reason, it would appear prudent to try and pursue religion of sinus rhythm. Toward this end, sotalol 80 mg twice daily has been initiated. Ultimately as she improves from a standpoint of congestive heart failure, MIREYA/cardioversion may be considered after several days of sotalol. HISTORY: This 87-year-old white female with past history of hypertension, multiple vertebral compression fractures resulting in kyphosis and previous cholecystectomy was admitted with recent history of edema of the lower extremities progressing over several months with recent mu-ism of progressive dyspnea symptoms. She has been found to have acute congestive heart failure with bilateral pleural effusions and peripheral edema. She was also found to be in atrial fibrillation which was new since her last encounter. She is not aware of any palpitations. Last encounter having been several months ago. She has had occasional tachy palpitations. Recently during 1 episode she had some chest pressure. However, this is not recurred. With control of her heart rate, she is not aware of her atrial fibrillation and she has had no further palpitations. She is diuresing with intravenous Lasix. She is not aware of any previous heart problems beyond an episode of postoperative atrial fibrillation in the past and hypertension. She had cholecystectomy about a year ago. Since then, she has had multiple vertebral compression fractures requiring kyphoplasty. However, she has developed significant kyphosis. She ambulates with aid of a walker but has not had any problems with falls. She is living in assisted living. She is a nonsmoker and does not drink alcohol. PAST MEDICAL HISTORY: 1. Hypertension. 2. Osteoarthritis. 3. Postoperative atrial fibrillation in the past. 4. Recurrent vertebral fractures, resultant kyphosis. PAST SURGICAL HISTORY: Includes cholecystectomy, hysterectomy, tubal ligation, right hip replacement and multiple thoracic kyphoplasties. ALLERGIES: She is allergic or intolerant to morphine and sulfa drugs. MEDICATIONS PRIOR TO ADMISSION: As listed. SOCIAL HISTORY: She has been since 2013. She has 2 children. She currently lives in assisted living. She does not smoke or use alcohol. FAMILY HISTORY: Negative for premature coronary disease. REVIEW OF SYSTEMS: Pulmonary: Noteworthy for dyspnea. Gastrointestinal: Negative. Constitutional: Negative. Remainder of review of systems negative/noncontributory beyond history of present illness with 14 total systems reviewed. PHYSICAL EXAMINATION: General: This is a pleasant, elderly white female in no distress. Vital signs: Blood pressure 131/89, heart rate 82 and regular, oxygen saturation 98% on nasal cannula oxygen at 2 L/minute. HEENT: Extraocular movements appear intact. Mucous membranes are moist. Neck: Supple without discernible jugular distention. Chest: Auscultation of the chest reveals diminished breath to the bases bilaterally. Cardiac: Exam reveals a irregular rate and rhythm without appreciable murmur or gallop. Abdomen: Soft, nontender. Bowel sounds normal. Extremities: Demonstrate mild pretibial edema. Neurologic: Exam reveals her to be alert and fully oriented. Speech is fluent. She moves all 4 extremities equally well. Skin: Warm and dry. Psychiatric: Exam reveals her mood to be appropriate. IMAGING: Twelve-lead EKG obtained on presentation demonstrates atrial fibrillation and nonspecific ST and T-wave abnormality. Chest x-ray demonstrates bilateral pleural effusions of moderate size. Echocardiography indicates left ventricular ejection fraction of 65 to 70 percent, moderate left atrial dilatation, small pericardial effusion, bilateral pleural effusions which appear to be moderate in size, aortic valve sclerosis without stenosis and pulmonary systolic pressure moderately elevated around 55 mmHg. LABORATORY DATA: Includes a white blood cell count of 5.74, hematocrit 38.0, hemoglobin 12.0, platelet count 208,000. Arterial blood gas on presentation, pH 7.45, pCO2 41, PO2 52 on room air. Sodium 139, potassium 4.0, chloride 100, carbon dioxide 27, BUN 23, creatinine 0.9. AST 39, ALT 44. Troponin T less than 0.01. Pro B-natriuretic peptide level 3918. Albumin 3.7. cc: MD Braydon Frances MD
[2018-03-07] MEDS: LASIX IV SCH ×2 (04:51→16:09)
[2018-03-07 05:53] LABS: CALCIUM 9.8 mg/dL (8.8-10.2); MAGNESIUM 1.7 mg/dL (1.5-2.7); POTASSIUM 3.7 mmol/L (3.5-5.1)
--- NOTE | 2018-03-07 07:05 | EKG Report ---
Test Performed on : 03/07/2018 06:46:16 AM Test Reason : afib Blood Pressure : / mmHG Vent. Rate : 065 BPM Atrial Rate : 208 BPM P-R Int : 000 ms QRS Dur : 086 ms QT Int : 340 ms P-R-T Axes : 000 009 125 degrees QTc Int : 353 ms Atrial fibrillation. Nonspecific ST and T wave abnormality Abnormal ECG When compared with ECG of 06-MAR-2018 16:40, (Unconfirmed) No significant change was found Confirmed by Tino LOPEZ, Hunter Goodwin ([id number]) on 03/07/2018 8:54:58 AM
[2018-03-07] MEDS: ASPIRIN EC PO SCH (08:50)
[2018-03-07] MEDS: LANOXIN IV SCH (08:50)
[2018-03-07] MEDS: ELIQUIS PO SCH ×2 (08:50→20:05)
[2018-03-07] MEDS: BETAPACE PO SCH ×2 (08:50→20:05)
[2018-03-07] MEDS: COZAAR PO SCH ×2 (08:50→20:05)
[2018-03-07] MEDS: CALTRATE 600 + D PO SCH ×2 (08:50→20:05)
[2018-03-07] MEDS: COLACE PO SCH (08:50)
--- NOTE | 2018-03-07 21:06 | PROGRESS NOTE ---
DATE: 03/07/2018 SUBJECTIVE: The patient is a little better. Appreciate Cardiology consult. Still in atrial fibrillation. Rate is well controlled and decreased. OBJECTIVE: Vital signs: Temperature 97 degrees, vitals are stable. Decreased JVD, bilateral air entry. Decreased breath sounds in both bases and decreased edema. 2 L nasal cannula. INVESTIGATIONS: Sodium 138, potassium 3.7, BUN 27, creatinine 1.0, glucose 92, cardiac enzymes were normal. ASSESSMENT AND PLAN: Diastolic heart failure with atrial fibrillation. Decrease the Lasix 40 q. 12, currently on losartan and sotalol and digoxin. Stroke prevention on Eliquis. Repeat the labs in the morning. Continue fluid restrictions. Daily weights and Dr. Noyola is considering MIREYA and cardioversion and will follow up. LEVEL OF DOCUMENTATION: 25 minutes. cc: Braydon Mathews MD
[2018-03-08] MEDS: LASIX IV SCH (05:09)
[2018-03-08 05:58] LABS: CALCIUM 10.1 mg/dL (8.8-10.2); MAGNESIUM 1.7 mg/dL (1.5-2.7); POTASSIUM 3.4 mmol/L (3.5-5.1)
[2018-03-08] MEDS: ASPIRIN EC PO SCH (09:39)
[2018-03-08] MEDS: COLACE PO SCH (09:39)
[2018-03-08] MEDS: COZAAR PO SCH ×2 (09:39→20:36)
[2018-03-08] MEDS: CALTRATE 600 + D PO SCH ×2 (09:39→20:36)
[2018-03-08] MEDS: ELIQUIS PO SCH ×2 (09:40→20:36)
[2018-03-08] MEDS: LANOXIN IV SCH (09:40)
[2018-03-08] MEDS: BETAPACE PO SCH ×2 (09:40→20:36)
[2018-03-08] MEDS ORDERED: KLOR-CON PO ONE (11:55)
--- NOTE | 2018-03-08 14:42 | CARDIOLOGY PROGRESS NOTE ---
DATE: 03/08/2018 SUBJECTIVE: Ms Palmer is doing well. She has no heart racing. No pain complaints. PHYSICAL: Afebrile. Heart rate 56, her blood pressure is 102/61. General: She is in no acute distress. Cardiovascular: She still sounds to be in an irregularly irregular but rate controlled rhythm. She has no obvious murmurs. She has no S3. No lower extremity edema. Chest: Sounds clear. She has no increased work of breathing. Abdomen: Soft, nontender. PERTINENT DATA: Her sodium is 139, potassium 3.4, BUN 31, creatinine is 1.0. QTc intervals have been relatively normal. ASSESSMENT: Ms. Palmer is an 87-year-old female with atrial fibrillation. PLAN: We will continue her on the sotalol. I have discontinue the aspirin and digoxin. In addition, I have reduced her Eliquis dose to 2.5 b.i.d. based on her weight and age. She has a chest x-ray ordered for the morning as does she have a basic metabolic panel. I will add a proBNP level to that. We may consider changing her over to oral Lasix in the morning. cc: MD Braydon Lozoya MD
--- NOTE | 2018-03-08 15:34 | PROGRESS NOTE ---
DATE: 03/08/2018 SUBJECTIVE: The patient is a little bit weak. Dr. Rosario came in today. Edema is much improved. Heart rate is dropping at 50. EXAMINATION: Temp is 97 degrees, pulse is 58, blood pressure is low. The patient is negative so far 5 L. HEENT within normal limits. Decreased air entry on both bases. Distant heart sounds. Belly is soft, nontender. No edema. LABS: Sodium 139, potassium 3.4, BUN 31, creatinine 1.0. ASSESSMENT AND PLAN: 1. Diastolic heart failure with atrial fibrillation. Waiting for MIREYA and cardioversion. 2. Hypokalemia. Replace the potassium. 3. Repeat the labs in the morning as well as chest x-ray. 4. Decrease IV Lasix since she is getting euvolemic. 5. Dr. Binh Rosario adjusted dose of Eliquis 2.5 p.o. b.i.d. Discontinue aspirin and digoxin. Currently on sotalol on losartan. We will check the labs in the morning. LEVEL OF DOCUMENTATION: 25 minutes. cc: Braydon Mathews MD
[2018-03-09 05:31] LABS: BASO# 0.04 X1000 (0.0-0.2); BASO% 0.9 % (0.0-0.8); EOS# 0.26 X1000 (0.0-0.7); EOS% 5.8 % (0.0-10.0); HEMOGLOBIN 12.2 g/dL (12.0-16.0); LYMPH% 33.6 % (20.5-51.1); MCH 28.8 PG (27-31); MCHC 31.3 g/dL (33-37); MCV 92.2 FL (81-99); MONO# 0.66 X1000 (0.11-0.59); MONO% 14.8 % (1.7-9.3); MPV 10.1 FL (7.4-10.4); NEUT# 2.01 X1000 (1.4-6.5); NEUT% 44.9 % (42.2-75.2); PLT 191 X1000 (130-400); RBC 4.23 XMIL (4.2-5.4); RDW 13.3 % (11.5-14.5); WBC 4.47 X1000 (4.8-10.8)
[2018-03-09 06:04] LABS: CALCIUM 9.2 mg/dL (8.8-10.2); CREATININE 1.2 mg/dL (0.5-0.9)
--- NOTE | 2018-03-09 07:53 | Diag Imaging Result Doc PS360 ---
EXAM: CHEST-PORTABLE INDICATION: dyspnea TECHNIQUE: One view COMPARISON: 03/06/2018 FINDINGS: Bilateral pleural effusions are approximately stable given differences in positioning. Infiltrates at the lower lung zones are slightly more dense suggesting slight worsening of pulmonary edema and/or atelectasis. Cardiac silhouette is stable. IMPRESSION: Likely slight worsening of pulmonary edema. Electronically signed by Neymar Diamond 03/09/2018 7:51 AM
[2018-03-09] MEDS: BETAPACE PO SCH ×2 (08:36→20:47)
[2018-03-09] MEDS: COZAAR PO SCH ×2 (08:36→20:47)
[2018-03-09] MEDS: ELIQUIS PO SCH ×2 (08:51→20:47)
[2018-03-09] MEDS: CALTRATE 600 + D PO SCH ×2 (08:51→20:47)
[2018-03-09] MEDS: LASIX IV SCH (08:51)
[2018-03-09] MEDS: COLACE PO SCH (08:51)
--- NOTE | 2018-03-09 11:28 | PROGRESS NOTE ---
DATE: 03/09/2018 SUBJECTIVE: Ms. Palmer has atrial fibrillation with acute congestive heart failure. OBJECTIVE: Her vital signs are stable today. Heart is irregular. Heart rate was slow today, present it is around 60. Lungs reveal basilar rales. Abdomen is soft, nontender. She is exhausted because she had a bath. Her chest x-ray shows pulmonary edema. The proBNP was 3182. Potassium has come back up from 3.44, and her white count is normal. Hemoglobin is 12.2. Vital signs otherwise are stable. PLAN: She is being seen by Dr. Binh Rosario. -2 cc: MD Braydon Bryant MD
--- NOTE | 2018-03-09 19:10 | CARDIOLOGY PROGRESS NOTE ---
DATE: 03/09/2018 SUBJECTIVE: Ms Palmer denies any palpitations, heart racing or chest pain. PHYSICAL: She is afebrile. Her heart rate most recently is 57 beats per minute. She seems to be having a little bit more bradycardia lately. Her blood pressure is 117/72.General: She is in no acute distress. Cardiovascular: She is in a irregularly irregular, relatively bradycardic rhythm presently. She has no lower extremity edema. No murmurs. Chest: Sounds clear bilaterally. She has no increased work of breathing. Abdomen: Soft, nontender. PERTINENT DATA: Her white count is 4.5, hematocrit is 39, her platelet count is 191,000. Her sodium is 139, potassium 4, BUN 31, creatinine is 1.2. Her proBNP is slightly down at 3180. ASSESSMENT: Ms. Palmer is an 87-year-old female with new onset atrial fibrillation. PLAN: I will reduce her sotalol to 40 mg b.i.d. Followup of her EKG this morning shows a QTc interval of 409, rate of 73. She continues to be in atrial fibrillation. Tentative plan for cardioversion to be performed in the morning. She has been made NPO for this procedure. cc: MD Braydon Lozoya MD
[2018-03-09] MEDS ORDERED: BETAPACE PO SCH (21:00)
[2018-03-10 06:23] LABS: CALCIUM 9.6 mg/dL (8.8-10.2); CREATININE 1.1 mg/dL (0.5-0.9); POTASSIUM 3.9 mmol/L (3.5-5.1)
--- NOTE | 2018-03-10 07:01 | EKG Report ---
Test Performed on : 03/10/2018 06:48:47 AM Test Reason : afib Blood Pressure : / mmHG Vent. Rate : 059 BPM Atrial Rate : 202 BPM P-R Int : 000 ms QRS Dur : 092 ms QT Int : 402 ms P-R-T Axes : 000 001 120 degrees QTc Int : 397 ms Atrial fibrillation. with slow ventricular response. Anterior infarct , age undetermined Abnormal ECG When compared with ECG of 09-MAR-2018 06:30, (Unconfirmed) Anterior infarct is now present Confirmed by Tino LOPEZ, Hunter Goodwin ([id number]) on 03/10/2018 9:45:15 AM
--- NOTE | 2018-03-10 07:34 | EKG Report ---
Test Performed on : 03/08/2018 06:12:40 AM Test Reason : afib Blood Pressure : / mmHG Vent. Rate : 060 BPM Atrial Rate : 326 BPM P-R Int : 000 ms QRS Dur : 086 ms QT Int : 434 ms P-R-T Axes : 000 009 113 degrees QTc Int : 434 ms Atrial fibrillation. Nonspecific T wave abnormality Abnormal ECG When compared with ECG of 07-MAR-2018 06:46, QT has lengthened Confirmed by Tino LOPEZ, Hunter Goodwin ([id number]) on 03/10/2018 9:44:18 AM
--- NOTE | 2018-03-10 07:51 | EKG Report ---
Test Performed on : 03/09/2018 06:30:18 AM Test Reason : afib Blood Pressure : / mmHG Vent. Rate : 057 BPM Atrial Rate : 312 BPM P-R Int : 000 ms QRS Dur : 082 ms QT Int : 392 ms P-R-T Axes : 000 011 114 degrees QTc Int : 381 ms Atrial fibrillation. with slow ventricular response. Nonspecific T wave abnormality Abnormal ECG When compared with ECG of 08-MAR-2018 06:12, (Unconfirmed) Nonspecific T wave abnormality, improved in Lateral leads QT has shortened Confirmed by Tino LOPEZ, Hunter Goodwin ([id number]) on 03/10/2018 9:44:37 AM
[2018-03-10] MEDS: COZAAR PO SCH ×2 (08:54→20:29)
[2018-03-10] MEDS: LASIX IV SCH (08:54)
[2018-03-10] MEDS: BETAPACE PO SCH ×2 (08:54→20:30)
[2018-03-10] MEDS: COLACE PO SCH (08:54)
[2018-03-10] MEDS: CALTRATE 600 + D PO SCH ×2 (08:55→20:29)
[2018-03-10] MEDS: ELIQUIS PO SCH ×2 (08:55→20:29)
--- NOTE | 2018-03-10 09:56 | PROGRESS NOTE ---
DATE: 03/10/2018 SUBJECTIVE: The patient continues without palpitations, chest pain, or shortness of breath. She does relate some fatigue, when she gets up to the bathroom. She continues in atrial fibrillation with controlled rate. OBJECTIVE: Vital Signs: Blood pressure 133/85, heart rate 60 and irregular, oxygen saturation 95% on nasal cannula oxygen. There is no significant jugular venous distention. Chest: Clear to auscultation. Cardiac: Reveals an irregular rate and rhythm without appreciable murmur, rub, or gallop. There is no evidence of peripheral edema. LABORATORY STUDIES: Twelve lead EKG demonstrates atrial fibrillation. Delayed precordial R-wave progression demonstrated cannot exclude previous anteroseptal infarct. Q-T interval 397 milliseconds. IMPRESSION: Persistent atrial fibrillation on sotalol. PLAN: Will arrange MIREYA cardioversion this morning. Indications of potential hazards were discussed with the patient, and she wished to proceed. cc: MD Braydon Frances MD
[2018-03-10] MEDS ORDERED: DIPRIVAN 1% ONE (11:16)
[2018-03-10] MEDS ORDERED: XYLOCAINE-MPF 1% 5 ML ONE (11:16)
[2018-03-10] MEDS ORDERED: NS 1,000 ML ONE (11:30)
[2018-03-10] MEDS ORDERED: ANESTHESIA PB SET 88 IN 5742 ONE (11:30)
--- NOTE | 2018-03-10 12:05 | PROGRESS NOTE ---
DATE: 03/10/2018 Ms. Palmer is doing better. She is somewhat exhausted this morning. She has atrial fibrillation with slow ventricular response. She is going to get a MIREYA procedure done today with Dr. Barbour. Overall condition is otherwise unchanged. -6 cc: MD Braydon Bryant MD
--- NOTE | 2018-03-10 12:51 | EKG Report ---
Test Performed on : 03/10/2018 12:42:29 PM Test Reason : S/P MIREYA/CVN Blood Pressure : / mmHG Vent. Rate : 046 BPM Atrial Rate : 046 BPM P-R Int : 246 ms QRS Dur : 086 ms QT Int : 498 ms P-R-T Axes : -08 001 113 degrees QTc Int : 435 ms Sinus bradycardia. with 1st degree AV block. with premature atrial complexes. Anterior infarct (cited on or before 10-MAR-2018) Abnormal ECG When compared with ECG of 10-MAR-2018 06:48, Sinus rhythm. has replaced Atrial fibrillation. Confirmed by Tino LOPEZ, Hunter Goodwin ([id number]) on 03/10/2018 3:19:54 PM
--- NOTE | 2018-03-10 13:54 | CARDIAC CATH REPORT ---
PROCEDURE NAME: - SUMMARY: The patient completed transesophageal echocardiography after conscious sedation per Anesthesiology with propofol. Patient is still sedated. A MIREYA noteworthy for absence of thrombus and left atrial appendage. No evidence of intracardiac thrombus. There was evidence of spontaneous echo contrast in left atrium. Cardioversion was performed using 200 joules biphasic synchronous cardioversion, converting atrial fibrillation to sinus bradycardia. The patient tolerated the procedure without apparent complications. CONCLUSIONS: Successful cardioversion of atrial fibrillation to sinus rhythm. cc: MD Braydon Frances MD
[2018-03-10] MEDS ORDERED: NON-FORMULARY BULK MED TOP PRN (19:53)
--- NOTE | 2018-03-11 09:14 | EKG Report ---
Test Performed on : 03/11/2018 07:09:19 AM Test Reason : afib Blood Pressure : / mmHG Vent. Rate : 045 BPM Atrial Rate : 045 BPM P-R Int : 242 ms QRS Dur : 096 ms QT Int : 438 ms P-R-T Axes : -09 011 106 degrees QTc Int : 378 ms Sinus bradycardia. with 1st degree AV block. Nonspecific ST and T wave abnormality Abnormal ECG When compared with ECG of 10-MAR-2018 12:42, premature atrial complexes. are no longer present QT has shortened Confirmed by Tino LOPEZ, Hunter Goodwin ([id number]) on 03/11/2018 1:12:45 PM
[2018-03-11] MEDS: LASIX IV SCH (09:21)
[2018-03-11] MEDS: COZAAR PO SCH (09:21)
[2018-03-11] MEDS: ELIQUIS PO SCH (09:21)
[2018-03-11] MEDS: COLACE PO SCH (09:21)
[2018-03-11] MEDS: CALTRATE 600 + D PO SCH (09:21)
[2018-03-11 11:02] VITALS: BP 117/51
--- NOTE | 2018-03-11 11:54 | PROGRESS NOTE ---
DATE: 03/11/2018 SUBJECTIVE: Patient continues without chest discomfort or dyspnea. She relates feeling better since cardioversion and has less tendency for fatigue when she gets up and about in the room. There has been no lightheadedness. OBJECTIVE: Vital Signs: Blood pressure 117/51, heart rate 54, oxygen saturation 100% on nasal cannula oxygen. Oxygen saturation 96% on room air. Neck: Jugular venous distention is noted and consistent with sinus rhythm with easily discerned A and V waves. Central venous pressure estimated be 8 to 10 cm. Chest: Clear to auscultation. Cardiac Exam: Reveals a regular rate and rhythm without appreciable murmur or gallop. There is no evidence of peripheral edema. LABORATORY DATA: Includes a sodium 141, potassium 3.9, chloride 98, carbon dioxide 35, BUN 29, creatinine 1.1. PERTINENT DATA: 12-lead EKG obtained this morning demonstrates sinus bradycardia with first- degree AV block, and nonspecific ST and T-wave abnormality. IMPRESSION: 1. Atrial fibrillation of fairly recent onset. Patient continues sinus bradycardia on low-dose sotalol. 2. Recent acute congestive heart failure predominantly right-sided with peripheral edema and pleural effusions. This is improved clinically with diuresis. 3. Hypertension. 4. Multiple vertebral compression fractures with resultant kyphosis and probable restrictive lung physiology. RECOMMENDATIONS: 1. Continue low-dose sotalol 40 mg p.o. b.i.d. 2. Continue anticoagulation with Eliquis 2.5 mg p.o. b.i.d. dosed according to patient's age and weight. 3. Transition to oral Lasix. 4. Reasonable for patient to be discharged today on current therapy and follow up with Cardiology at the [facility] in approximately 2 weeks. cc: MD Braydon Frances MD
--- NOTE | 2018-03-11 12:59 | PROGRESS NOTE ---
DATE: 03/11/2017 SUBJECTIVE: Ms. Palmer is doing better. The patient admitted with atrial fibrillation with rapid ventricular response. The patient underwent cardioversion yesterday. The patient is doing better. She denied any chest pain, palpitations. No unusual shortness of breath. She denied any lightheadedness. Patient is very eager to go home. She denied any bleeding. Lab Animal Technician evaluated the patient and cleared her to be discharged. PAST MEDICAL HISTORY AND MEDICATION: Noted. OBJECTIVE: Vital Signs: Blood pressure 117/51, pulse 54, respiration 18, temperature 97.9. Neck supple. No JVD. Lungs: Bilateral good air entry present. CVS: S1 and S2 heard. Bradycardia: Abdomen soft, nontender. Bowel sounds present. QC MANAGER: Alert, awake, able to move all 4 limbs. No acute DVT. Lab data noted. Electrolytes checked yesterday reviewed. Overall, the patient is doing better. We will discharge patient home today. Prescription given by the ventilated rib fitter. Discussed about fall precautions. Monitor blood pressure and heart rate at home. Follow up with Dr. Mathews in a week. Follow up with ventilated rib fitter as scheduled. In case of more distress, call us back or go to the emergency room. Overall, discharge condition satisfactory. OTHER PROBLEMS: 1. Osteoporotic compression fracture of the spine. 2. Hypertension. 3. Constipation. cc: MD Braydon Oliver MD
--- NOTE | 2018-03-11 18:48 | DISCHARGE SUMMARY ---
ADMISSION DATE: 03/05/2018 DISCHARGE DATE: 03/11/2018 DISCHARGING DIAGNOSIS: Acute decompensated diastolic heart failure with atrial fibrillation. SECONDARY DIAGNOSIS: 1. Hypertension. 2. Osteoarthritis. 3. Multiple compression fractures with kyphoplasty changes in thoracic spine. CONSULTANTS: Gilmer Dewey. PROCEDURES: Transesophageal echocardiogram followed by successful cardioversion. BRIEF HISTORY: Please see the H and P that was done on the day of admission. In brief she is 87- year-old white female admitted to the hospital directly from my office with shortness of breath, cough, wheezing, swelling of feet. Chest x-ray, bilateral pleural effusions and she has irregular heart rate consistent with atrial fibrillation. Patient has elevated JVD and gallop. Patient was admitted [facility]. HOSPITAL COURSE: She was given oxygen, IV Lasix, control the ventricular response with Lanoxin and beta blockers. Patient slowly diuresis very well, edema much improved. Patient developed hypokalemia, electrolytes were replaced. Cardiology consult was obtained. Patient had a MIREYA followed by cardioversion and maintained in sinus. The patient was ruled out for NE by serial cardiac enzymes. Normal thyroid function test. Followup chest x-ray some edema in both bases. LABS: At the time of discharge CBC, white cell count 4.4, hematocrit 39, platelets 191,000, sodium 140, potassium 3.9, BUN 29, creatinine 1.1. ProBNP 3000. Weight was 132 pounds. DISCHARGING MEDICATIONS: Aspirin 81 mg daily, calcium with vitamin D 1 tablet p.o. b.i.d., multivitamins 1 tablet daily, Colace 100 daily, losartan 100 mg daily, Eliquis 2.5 p.o. b.i.d., Sotalol 40 p.o. b.i.d., Lasix 40 daily. FOLLOWUP: In my office in 1 week as well as vice president supply chain. cc: Gilmer Barbour MD
[2018-03-12] MEDS ORDERED: LASIX PO SCH (09:00)
--- NOTE | 2018-03-13 09:24 | ECHO REPORT ---
ORDER DATE: 03/10/2018 SUMMARY: After sedation per Anesthesiology with propofol intravenously, I passed transesophageal echocardiography probe into the patient's esophagus without difficulty. Transesophageal echocardiography was subsequently performed without incident and demonstrated: 1. Aortic valve is trileaflet and opens normally on 2-dimensional images. Mitral, tricuspid, and pulmonic valves are without evidence of structural abnormality. There is mild mitral regurgitation and mild tricuspid regurgitation. Aortic root is normal in size. 2. Normal left ventricular chamber size with borderline concentric left hypertrophy suggested. Estimated left ventricular ejection fraction appears to be at least 60%. No regional wall motion abnormalities are evident. Mild biatrial enlargement is demonstrated. The right ventricle is normal in size with grossly preserved right ventricular systolic function. All 4 cardiac chambers and left atrial appendage appear free of intracardiac thrombus. There is spontaneous echo contrast noted in the left atrium. Velocities in left atrial appendage by Doppler appear to be above 50 cm/second. 3. Interatrial septum appears intact and without evidence of interatrial shunting on color Doppler. Intravenous agitated saline contrast study performed reveals no evidence of right-to- left intracardiac shunting. 4. Very small posterior pericardial effusion. 5. Descending thoracic aorta demonstrates minimal atherosclerotic plaquing. cc: MD Braydon Frances MD
== END 2018-03-11 13:26 | DRG 291 ==
LOC: DIRADM 16:33 → 3S 17:19
PROVIDERS: ADMIT Internal Medicine; ATTEND Internal Medicine
CPT/HCPCS: 71010; 71020; 71045; 71046; 80048; 80053; 81001; 82550; 82805; 83735; 83880; 84443; 84484; 85025; 85027; 85610; 92960; 93005; 93010; 93306; 93312; 94761; A9270; J1160; J1650; J1940; J7030